=== PATIENT | male | born 1975 | race African-American/Black ===

== ENCOUNTER 2017-02-24 12:06 | Emergency (ER) | payer OTHER ==
[~2017-02-24] VITALS: Ht 170.2 cm; Wt 84.4 kg
[2017-02-24 12:13] VITALS: BP 147/72
== END 2017-02-24 12:26 | disposition home or self-care (01) ==
LOC: ER 12:07
DX: H10.9 Unspecified conjunctivitis (principal); F17.200 Nicotine dependence, unspecified, uncomplicated; I10 Essential (primary) hypertension
CPT/HCPCS: A4606; Z7502; Z7610